=== PATIENT | male | born 1955 | race Hispanic/Latino ===

== ENCOUNTER → 2020-03-04 | Outpatient (CLI) | payer OTHER | END | disposition home or self-care (01) | LOC: RAH 12:54 | PROVIDERS: ATTEND Internal Medicine Cardiovascular Disease | DX: Z13.6 Encounter for screening for cardiovascular disorders (principal) | CPT/HCPCS: 75571 ==

== ENCOUNTER → 2024-06-10 | Outpatient (CLI) | payer MEDICARE | END | disposition home or self-care (01) | LOC: RAH 13:32 | PROVIDERS: ATTEND Internal Medicine | DX: I05.9 Rheumatic mitral valve disease, unspecified (principal); I10 Essential (primary) hypertension; R01.1 Cardiac murmur, unspecified | CPT/HCPCS: 93306 ==